=== PATIENT | male | born 1995 | race Two or more races ===

== ENCOUNTER 2024-11-21 00:19 | Emergency (ER) | payer OTHER ==
[~2024-11-21] VITALS: Ht 160 cm; Wt 86.2 kg
[2024-11-21] MEDS ORDERED: ALBUTEROL SULFATE 3 ML/2.5 MG AMPUL.NEB IH STA (06:43)
[2024-11-21] MEDS ORDERED: GUAIFENESIN 200 MG/10 ML BLIST.PACK PO STA (06:44)
[2024-11-21] MEDS ORDERED: GUAIFENESIN 200 MG/10 ML BLIST.PACK PO ONE (07:04)
[2024-11-21] MEDS ORDERED: ALBUTEROL SULFATE 3 ML/2.5 MG AMPUL.NEB IH ONE (07:49)
[2024-11-21 07:59] LABS: HEMATOCRIT 43.6 % (39.0-48.0); HEMOGLOBIN 15.4 g/dL (13-16.00); MEAN CELL VOLUME 83.5 fL (80.0-100.00); MEAN CORPUSCULAR HEMOGLOBIN 29.5 pg (27.00-32.0); MEAN CORPUSCULAR HGB CONC 35.3 g/dl (32.0-36.0); PLATELET COUNT 293 K/uL (150-450); RED BLOOD COUNT 5.21 M/uL (4.00-6.00)
== END 2024-11-21 10:10 | disposition home or self-care (01) ==
LOC: ER 00:21
PROVIDERS: General Practice
DX: R13.10 Dysphagia, unspecified (principal); Z20.822 Contact with and (suspected) exposure to COVID-19